=== PATIENT | male | born 1935 | race Caucasian/White ===

== ENCOUNTER 2019-05-07 16:36 | Inpatient (IN) ==
[2019-05-07 20:01] LABS: Basophils % 0.3 % (0.0-0.8); Eosinophils % 0.1 % (0.00-10.9); Hemoglobin 12.7 GM/DL (14.0-18.0); Immature Granulocytes % 0.5 %; Immature Granulocytes Absolute 0.05 #; Lymphocytes # 0.8 10*3/uL (1.4-4.0); Lymphocytes % 8.5 % (21.2-54.2); Mean Corpuscular HGB Conc 31.8 GM/DL (32-36); Mean Corpuscular Volume 95.7 FL (87-102); Mean Platelet Volume 9.8 FL (9.6-12.0); Monocytes % 11.1 % (1.7-12.7); Neutrophils % 79.5 % (38.7-73.9); Platelet Count 296 T/CUMM (130-400); Red Blood Count 4.18 MC/CUMM (3.8-5.5); Red Cell Distribution Width 13.7 % (9.3-17.3); White Blood Count 9.7 T/CUMM (4-12)
[2019-05-07 21:27] LABS: Albumin 3.5 G/DL (3.4-5.0); Bilirubin,Total 0.8 MG/DL (0.2-1.0); Calcium 8.7 MG/DL (8.5-10.1); Osmolality,Calculated 285.3 MOS/KG (273-304); Risk Ratio 2.02; Total Protein 7.9 G/DL (6.4-8.3); VLDL CHOLESTEROL 29.4 MG/DL
[2019-05-07] MEDS: ENOXAPARIN 40 MG/0.4 ML SYRINGE SUBCUT SCH (22:56)
[2019-05-07] MEDS ORDERED: ACETAMINOPHEN 650 MG SUPP RECTAL PRN (23:46)
[2019-05-07] MEDS ORDERED: ACETAMINOPHEN 500 MG TABLET PO PRN (23:46)
[2019-05-08 00:05] LABS: ABG Base Excess 4.2 MMOL/L (-2.5-2.5); ABG HCO3 32.9 MMOL/L (20-26); ABG PO2 68.5 MM HG (80-95); ABG TCO2 35.1 MMOL/L (23-27); Allen Test Positive; Pt O2 Delivery Device Other
[2019-05-08 00:08] LABS: ABG PH 7.281 (7.35-7.45)
[2019-05-08 03:50] LABS: ABG Base Excess 1.8 MMOL/L (-2.5-2.5); ABG HCO3 25.9 MMOL/L (20-26); ABG Oxygen Saturation 93.4 % (95-100); ABG PO2 75.3 MM HG (80-95); ABG TCO2 31.3 MMOL/L (23-27); Allen Test Positive; Pt O2 Delivery Device BIPAP
[2019-05-08 03:57] LABS: ABG PH 7.174 (7.35-7.45)
[2019-05-08 03:59] LABS: ABG PCO2 92.5 MM HG (35-48)
[2019-05-08] MEDS ORDERED: methylPREDNISolone SOD SUC 125 MG/2 ML VIAL IV ONE (04:07)
[2019-05-08] MEDS: MEROPENEM 500 MG in SODIUM CHLORIDE 0.9% 100 ML IV SCH ×3 (04:47→20:38)
[2019-05-08 05:15] LABS: ABG Base Excess 2.5 MMOL/L (-2.5-2.5); ABG HCO3 26.6 MMOL/L (20-26); ABG Oxygen Saturation 95.5 % (95-100); ABG PH 7.267 (7.35-7.45); ABG PO2 77.4 MM HG (80-95); ABG TCO2 28.6 MMOL/L (23-27); Allen Test Positive; Pt O2 Delivery Device BIPAP
[2019-05-08 05:18] LABS: ABG PCO2 69.9 MM HG (35-48)
[2019-05-08 05:50] LABS: Basophils % 0.2 % (0.0-0.8); Hematocrit 38.5 VOL% (42.0-52.0); Immature Granulocytes % 0.5 %; Immature Granulocytes Absolute 0.05 #; Lymphocytes # 0.9 10*3/uL (1.4-4.0); Lymphocytes % 9.8 % (21.2-54.2); Mean Corpuscular HGB Conc 31.2 GM/DL (32-36); Mean Corpuscular Volume 96.3 FL (87-102); Mean Platelet Volume 9.6 FL (9.6-12.0); Monocytes % 12.2 % (1.7-12.7); Neutrophils % 77.3 % (38.7-73.9); Platelet Count 275 T/CUMM (130-400); Red Cell Distribution Width 13.8 % (9.3-17.3); White Blood Count 9.5 T/CUMM (4-12)
[2019-05-08] MEDS: VANCOMYCIN INJ 1,500 MG in SODIUM CHLORIDE 0.9% 500 ML IV SCH (06:17)
[2019-05-08 06:19] LABS: Albumin 3.2 G/DL (3.4-5.0); Bilirubin,Total 0.6 MG/DL (0.2-1.0); Calcium 8.5 MG/DL (8.5-10.1); Osmolality,Calculated 291.8 MOS/KG (273-304); Total Protein 7.5 G/DL (6.4-8.3)
[2019-05-08] MEDS ORDERED: cefTRIAXone 1,000 MG in SYRINGE 1 EACH IV SCH (09:00)
[2019-05-08 17:01] LABS: ABG Base Excess 2.3 MMOL/L (-2.5-2.5); ABG HCO3 26.3 MMOL/L (20-26); ABG Oxygen Saturation 91.4 % (95-100); ABG PCO2 60.1 MM HG (35-48); ABG PH 7.309 (7.35-7.45); ABG TCO2 27.2 MMOL/L (23-27); Pt O2 Delivery Device BIPAP
[2019-05-08] MEDS: ENOXAPARIN 40 MG/0.4 ML SYRINGE SUBCUT SCH (20:45)
[2019-05-08] MEDS: carvediloL 6.25 MG TABLET PO SCH (20:46)
[2019-05-08] MEDS: NYSTATIN 500,000 UNIT/5 ML UDCUP SWISH/SWAL SCH (20:46)
[2019-05-08] MEDS ORDERED: ALBUTEROL/IPRATROPIUM 3 ML NEB RESP TX PRN (21:00)
[2019-05-09] MEDS: ALBUTEROL/IPRATROPIUM 3 ML NEB RESP TX SCH ×4 (02:30→20:47)
[2019-05-09] MEDS: MEROPENEM 500 MG in SODIUM CHLORIDE 0.9% 100 ML IV SCH ×3 (04:27→20:10)
[2019-05-09 05:56] LABS: Basophils % 0.2 % (0.0-0.8); Eosinophils % 0.1 % (0.00-10.9); Hematocrit 35.1 VOL% (42.0-52.0); Immature Granulocytes % 0.6 %; Immature Granulocytes Absolute 0.05 #; Lymphocytes # 1.6 10*3/uL (1.4-4.0); Mean Corpuscular HGB Conc 31.3 GM/DL (32-36); Mean Corpuscular Volume 95.6 FL (87-102); Monocytes % 13.7 % (1.7-12.7); Neutrophils % 65.4 % (38.7-73.9); Platelet Count 251 T/CUMM (130-400); Red Blood Count 3.67 MC/CUMM (3.8-5.5); Red Cell Distribution Width 13.6 % (9.3-17.3)
[2019-05-09 06:21] LABS: Calcium 8.8 MG/DL (8.5-10.1); Osmolality,Calculated 299.4 MOS/KG (273-304)
[2019-05-09 06:38] LABS: ABG PCO2 71.5 MM HG (35-48)
[2019-05-09] MEDS: NYSTATIN 500,000 UNIT/5 ML UDCUP SWISH/SWAL SCH ×4 (08:06→20:10)
[2019-05-09] MEDS: carvediloL 6.25 MG TABLET PO SCH ×2 (08:06→20:09)
[2019-05-09] MEDS: amLODIPine 10 MG TABLET PO SCH (12:18)
[2019-05-09] MEDS: POTASSIUM CHLORIDE 20 MEQ TABLET PO SCH (12:18)
[2019-05-09] MEDS: VANCOMYCIN INJ 1,500 MG in SODIUM CHLORIDE 0.9% 500 ML IV SCH (17:14)
[2019-05-09] MEDS: ENOXAPARIN 40 MG/0.4 ML SYRINGE SUBCUT SCH (20:08)
[2019-05-09] MEDS: FUROSEMIDE 20 MG TABLET PO SCH (20:09)
[2019-05-09] MEDS ORDERED: POTASSIUM CHLORIDE 20 MEQ TABLET PO SCH (21:00)
[2019-05-09] MEDS ORDERED: carvediloL 25 MG TABLET PO SCH (21:00)
[2019-05-10] MEDS: ALBUTEROL/IPRATROPIUM 3 ML NEB RESP TX SCH ×5 (01:46→23:55)
[2019-05-10] MEDS: MEROPENEM 500 MG in SODIUM CHLORIDE 0.9% 100 ML IV SCH ×3 (05:10→21:30)
[2019-05-10 05:31] LABS: Basophils % 0.4 % (0.0-0.8); Eosinophils % 0.6 % (0.00-10.9); Hematocrit 35.4 VOL% (42.0-52.0); Hemoglobin 11.1 GM/DL (14.0-18.0); Immature Granulocytes % 1.3 %; Immature Granulocytes Absolute 0.09 #; Lymphocytes # 1.6 10*3/uL (1.4-4.0); Lymphocytes % 22.4 % (21.2-54.2); Mean Corpuscular HGB Conc 31.4 GM/DL (32-36); Mean Corpuscular Volume 94.7 FL (87-102); Mean Platelet Volume 9.7 FL (9.6-12.0); Monocytes % 11.5 % (1.7-12.7); Neutrophils % 63.8 % (38.7-73.9); Platelet Count 256 T/CUMM (130-400); Red Blood Count 3.74 MC/CUMM (3.8-5.5); Red Cell Distribution Width 13.5 % (9.3-17.3)
[2019-05-10 06:04] LABS: Calcium 8.8 MG/DL (8.5-10.1); Osmolality,Calculated 298.4 MOS/KG (273-304)
[2019-05-10] MEDS: lisinopriL 10 MG TABLET PO SCH (08:25)
[2019-05-10] MEDS: amLODIPine 10 MG TABLET PO SCH (08:25)
[2019-05-10] MEDS: FUROSEMIDE 20 MG TABLET PO SCH ×2 (08:25→21:29)
[2019-05-10] MEDS: POTASSIUM CHLORIDE 20 MEQ TABLET PO SCH ×2 (08:25→21:29)
[2019-05-10] MEDS: NYSTATIN 500,000 UNIT/5 ML UDCUP SWISH/SWAL SCH ×4 (08:25→21:28)
[2019-05-10] MEDS: carvediloL 6.25 MG TABLET PO SCH ×2 (08:25→21:29)
[2019-05-10] MEDS ORDERED: POTASSIUM CHLORIDE 20 MEQ TABLET PO ONE (10:41)
[2019-05-10] MEDS: VANCOMYCIN INJ 1,500 MG in SODIUM CHLORIDE 0.9% 500 ML IV SCH (17:36)
[2019-05-10] MEDS: ROSUVASTATIN 20 MG TABLET PO SCH (21:29)
[2019-05-10] MEDS: ENOXAPARIN 40 MG/0.4 ML SYRINGE SUBCUT SCH (21:30)
[2019-05-11] MEDS: MEROPENEM 500 MG in SODIUM CHLORIDE 0.9% 100 ML IV SCH ×3 (05:03→20:48)
[2019-05-11 05:35] LABS: Albumin 2.8 G/DL (3.4-5.0); Calcium 8.7 MG/DL (8.5-10.1); Osmolality,Calculated 298.1 MOS/KG (273-304)
[2019-05-11] MEDS: ALBUTEROL/IPRATROPIUM 3 ML NEB RESP TX SCH ×3 (08:05→19:44)
[2019-05-11] MEDS: carvediloL 6.25 MG TABLET PO SCH ×2 (08:56→20:49)
[2019-05-11] MEDS: POTASSIUM CHLORIDE 20 MEQ TABLET PO SCH ×2 (08:56→20:50)
[2019-05-11] MEDS: FUROSEMIDE 20 MG TABLET PO SCH ×2 (08:56→20:50)
[2019-05-11] MEDS: amLODIPine 10 MG TABLET PO SCH (08:56)
[2019-05-11] MEDS: NYSTATIN 500,000 UNIT/5 ML UDCUP SWISH/SWAL SCH ×4 (08:57→20:50)
[2019-05-11] MEDS: lisinopriL 10 MG TABLET PO SCH (09:05)
[2019-05-11] MEDS: VANCOMYCIN INJ 1,500 MG in SODIUM CHLORIDE 0.9% 500 ML IV SCH (17:44)
[2019-05-11] MEDS: ENOXAPARIN 40 MG/0.4 ML SYRINGE SUBCUT SCH (20:49)
[2019-05-11] MEDS: ROSUVASTATIN 20 MG TABLET PO SCH (20:49)
[2019-05-12] MEDS: ALBUTEROL/IPRATROPIUM 3 ML NEB RESP TX SCH ×4 (01:08→19:50)
[2019-05-12] MEDS: MEROPENEM 500 MG in SODIUM CHLORIDE 0.9% 100 ML IV SCH ×4 (03:05→21:25)
[2019-05-12 04:54] LABS: Basophils % 0.3 % (0.0-0.8); Eosinophils # 0.1 10*3/uL (0.0-0.87); Eosinophils % 1.8 % (0.00-10.9); Hematocrit 34.9 VOL% (42.0-52.0); Immature Granulocytes % 0.7 %; Immature Granulocytes Absolute 0.05 #; Lymphocytes # 1.4 10*3/uL (1.4-4.0); Lymphocytes % 20.4 % (21.2-54.2); Mean Corpuscular HGB Conc 31.5 GM/DL (32-36); Mean Corpuscular Volume 94.3 FL (87-102); Mean Platelet Volume 9.7 FL (9.6-12.0); Monocytes % 10.6 % (1.7-12.7); Neutrophils % 66.2 % (38.7-73.9); Platelet Count 259 T/CUMM (130-400); Red Cell Distribution Width 13.3 % (9.3-17.3); White Blood Count 6.7 T/CUMM (4-12)
[2019-05-12 05:08] LABS: Calcium 8.7 MG/DL (8.5-10.1); Osmolality,Calculated 292.4 MOS/KG (273-304)
[2019-05-12] MEDS: POTASSIUM CHLORIDE 20 MEQ TABLET PO SCH ×2 (09:07→20:39)
[2019-05-12] MEDS: amLODIPine 10 MG TABLET PO SCH (09:07)
[2019-05-12] MEDS: NYSTATIN 500,000 UNIT/5 ML UDCUP SWISH/SWAL SCH ×4 (09:09→20:38)
[2019-05-12] MEDS: lisinopriL 10 MG TABLET PO SCH (09:10)
[2019-05-12] MEDS: FUROSEMIDE 20 MG TABLET PO SCH ×2 (09:10→20:39)
[2019-05-12] MEDS: carvediloL 6.25 MG TABLET PO SCH ×2 (09:10→20:39)
[2019-05-12] MEDS ORDERED: MAGNESIUM SULF RIDER 2 GM in PREMIX 1 EACH IV ONE (15:45)
[2019-05-12] MEDS: POTASSIUM CHLORIDE 20 MEQ/15 ML UDCUP PER TUBE SCH ×3 (16:25→23:41)
[2019-05-12] MEDS: VANCOMYCIN INJ 1,500 MG in SODIUM CHLORIDE 0.9% 500 ML IV SCH (18:32)
[2019-05-12] MEDS: ENOXAPARIN 40 MG/0.4 ML SYRINGE SUBCUT SCH (20:37)
[2019-05-12] MEDS: ROSUVASTATIN 20 MG TABLET PO SCH (20:39)
[2019-05-13] MEDS: ALBUTEROL/IPRATROPIUM 3 ML NEB RESP TX SCH ×4 (00:35→20:24)
[2019-05-13] MEDS: MEROPENEM 500 MG in SODIUM CHLORIDE 0.9% 100 ML IV SCH ×4 (03:37→20:41)
[2019-05-13] MEDS: POTASSIUM CHLORIDE 20 MEQ TABLET PO SCH ×2 (08:25→20:42)
[2019-05-13] MEDS: FUROSEMIDE 20 MG TABLET PO SCH ×2 (08:25→20:42)
[2019-05-13] MEDS: lisinopriL 10 MG TABLET PO SCH (08:25)
[2019-05-13] MEDS: carvediloL 6.25 MG TABLET PO SCH ×2 (08:25→20:42)
[2019-05-13] MEDS: amLODIPine 10 MG TABLET PO SCH (08:25)
[2019-05-13] MEDS: NYSTATIN 500,000 UNIT/5 ML UDCUP SWISH/SWAL SCH ×4 (08:26→20:42)
[2019-05-13] MEDS: VANCOMYCIN INJ 1,500 MG in SODIUM CHLORIDE 0.9% 500 ML IV SCH (18:03)
[2019-05-13] MEDS: ENOXAPARIN 40 MG/0.4 ML SYRINGE SUBCUT SCH (20:41)
[2019-05-13] MEDS: ROSUVASTATIN 20 MG TABLET PO SCH (20:42)
[2019-05-14] MEDS: ALBUTEROL/IPRATROPIUM 3 ML NEB RESP TX SCH ×4 (00:05→19:41)
[2019-05-14] MEDS: MEROPENEM 500 MG in SODIUM CHLORIDE 0.9% 100 ML IV SCH ×4 (05:00→22:20)
[2019-05-14 06:20] LABS: Basophils % 0.5 % (0.0-0.8); Eosinophils # 0.1 10*3/uL (0.0-0.87); Eosinophils % 1.2 % (0.00-10.9); Hematocrit 35.7 VOL% (42.0-52.0); Hemoglobin 11.3 GM/DL (14.0-18.0); Immature Granulocytes % 0.6 %; Immature Granulocytes Absolute 0.05 #; Lymphocytes # 1.7 10*3/uL (1.4-4.0); Lymphocytes % 19.8 % (21.2-54.2); Mean Corpuscular HGB Conc 31.7 GM/DL (32-36); Mean Corpuscular Volume 93.9 FL (87-102); Mean Platelet Volume 9.8 FL (9.6-12.0); Monocytes % 8.5 % (1.7-12.7); Neutrophils % 69.4 % (38.7-73.9); Platelet Count 262 T/CUMM (130-400); Red Cell Distribution Width 13.2 % (9.3-17.3); White Blood Count 8.4 T/CUMM (4-12)
[2019-05-14 06:38] LABS: Calcium 8.4 MG/DL (8.5-10.1); Osmolality,Calculated 288.7 MOS/KG (273-304)
[2019-05-14] MEDS: amLODIPine 10 MG TABLET PO SCH (08:53)
[2019-05-14] MEDS: carvediloL 6.25 MG TABLET PO SCH ×2 (08:54→21:05)
[2019-05-14] MEDS: NYSTATIN 500,000 UNIT/5 ML UDCUP SWISH/SWAL SCH ×4 (08:54→21:05)
[2019-05-14] MEDS: FUROSEMIDE 20 MG TABLET PO SCH ×2 (08:54→21:05)
[2019-05-14] MEDS: POTASSIUM CHLORIDE 20 MEQ TABLET PO SCH ×2 (08:54→21:04)
[2019-05-14] MEDS: lisinopriL 10 MG TABLET PO SCH (08:54)
[2019-05-14] MEDS: VANCOMYCIN INJ 1,500 MG in SODIUM CHLORIDE 0.9% 500 ML IV SCH (18:13)
[2019-05-14] MEDS: ENOXAPARIN 40 MG/0.4 ML SYRINGE SUBCUT SCH (21:05)
[2019-05-14] MEDS: ROSUVASTATIN 20 MG TABLET PO SCH (21:05)
[2019-05-15] MEDS: ALBUTEROL/IPRATROPIUM 3 ML NEB RESP TX SCH ×4 (00:12→20:18)
[2019-05-15] MEDS: MEROPENEM 500 MG in SODIUM CHLORIDE 0.9% 100 ML IV SCH ×2 (03:04→09:34)
[2019-05-15] MEDS: FUROSEMIDE 20 MG TABLET PO SCH ×2 (09:33→21:26)
[2019-05-15] MEDS: amLODIPine 10 MG TABLET PO SCH (09:34)
[2019-05-15] MEDS: lisinopriL 10 MG TABLET PO SCH (09:34)
[2019-05-15] MEDS: carvediloL 6.25 MG TABLET PO SCH ×2 (09:34→21:26)
[2019-05-15] MEDS: NYSTATIN 500,000 UNIT/5 ML UDCUP SWISH/SWAL SCH ×4 (09:34→21:26)
[2019-05-15] MEDS: POTASSIUM CHLORIDE 20 MEQ TABLET PO SCH ×2 (09:35→21:26)
[2019-05-15] MEDS: ENOXAPARIN 40 MG/0.4 ML SYRINGE SUBCUT SCH (21:25)
[2019-05-15] MEDS: DOXYCYCLINE HYCLATE 100 MG CAPSULE PO SCH (21:26)
[2019-05-15] MEDS: ROSUVASTATIN 20 MG TABLET PO SCH (21:26)
[2019-05-16] MEDS: ALBUTEROL/IPRATROPIUM 3 ML NEB RESP TX SCH ×2 (00:20→06:47)
[2019-05-16 05:19] LABS: Basophils % 0.3 % (0.0-0.8); Eosinophils # 0.1 10*3/uL (0.0-0.87); Hematocrit 32.6 VOL% (42.0-52.0); Hemoglobin 10.2 GM/DL (14.0-18.0); Immature Granulocytes % 0.7 %; Immature Granulocytes Absolute 0.07 #; Lymphocytes # 1.8 10*3/uL (1.4-4.0); Lymphocytes % 18.7 % (21.2-54.2); Mean Corpuscular HGB Conc 31.3 GM/DL (32-36); Mean Corpuscular Volume 94.5 FL (87-102); Monocytes % 10.1 % (1.7-12.7); Neutrophils % 69.2 % (38.7-73.9); Platelet Count 246 T/CUMM (130-400); Red Blood Count 3.45 MC/CUMM (3.8-5.5); Red Cell Distribution Width 13.2 % (9.3-17.3); White Blood Count 9.4 T/CUMM (4-12)
[2019-05-16 05:43] LABS: Calcium 8.4 MG/DL (8.5-10.1); Osmolality,Calculated 287.8 MOS/KG (273-304)
[2019-05-16] MEDS: NYSTATIN 500,000 UNIT/5 ML UDCUP SWISH/SWAL SCH ×2 (09:03→12:11)
[2019-05-16] MEDS: POTASSIUM CHLORIDE 20 MEQ TABLET PO SCH (09:03)
[2019-05-16] MEDS: DOXYCYCLINE HYCLATE 100 MG CAPSULE PO SCH (09:03)
[2019-05-16] MEDS: lisinopriL 10 MG TABLET PO SCH (09:03)
[2019-05-16] MEDS: carvediloL 6.25 MG TABLET PO SCH (09:04)
[2019-05-16] MEDS: amLODIPine 10 MG TABLET PO SCH (09:04)
[2019-05-16] MEDS: FUROSEMIDE 20 MG TABLET PO SCH (09:04)
[2019-05-16 12:34] VITALS: BP 126/64
== END 2019-05-16 13:35 | disposition home health service (06) | DRG 193 ==
LOC: N.5E 17:55 → SUATTDRO 17:55 → N.CC 18:51 → N.3E 05-10 16:40
PROVIDERS: ADMIT Internal Medicine; ATTEND Internal Medicine

== ENCOUNTER 2022-05-03 17:47 | Inpatient (IN) ==
[2022-05-03] MEDS ORDERED: ALBUTEROL/IPRATROPIUM 3 ML NEB RESP TX STA (18:34)
[2022-05-03] MEDS ORDERED: MORPHINE 2 MG/1 ML SYRINGE IV STA (18:34)
[2022-05-03] MEDS ORDERED: ONDANSETRON 4 MG/2 ML VIAL IV STA (18:34)
[2022-05-03] MEDS ORDERED: FUROSEMIDE 100 MG/10 ML VIAL IV STA (18:34)
[2022-05-03] MEDS ORDERED: methylPREDNISolone SOD SUC 125 MG/2 ML VIAL IV STA (18:34)
[2022-05-03] MEDS ORDERED: ASPIRIN 325 MG TABLET PO STA (18:34)
[2022-05-03 18:41] LABS: Basophils % 0.3 % (0.0-0.8); Eosinophils # 0.1 10*3/uL (0.0-0.87); Eosinophils % 1.3 % (0.00-10.9); Hematocrit 41.8 VOL% (42.0-52.0); Hemoglobin 12.8 GM/DL (14.0-18.0); Lymphocytes # 2.2 10*3/uL (1.4-4.0); Lymphocytes % 21.3 % (21.2-54.2); Mean Corpuscular HGB Conc 30.6 GM/DL (32-36); Mean Corpuscular Volume 98.1 FL (87-102); Mean Platelet Volume 10.3 FL (9.6-12.0); Monocytes # 0.9 10*3/uL (0.11-0.8); Monocytes % 8.5 % (1.7-12.7); Neutrophils % 67.6 % (38.7-73.9); Platelet Count 372 T/CUMM (130-400); Red Blood Count 4.26 MC/CUMM (3.8-5.5); Red Cell Distribution Width 14.4 % (9.3-17.3); White Blood Count 10.3 T/CUMM (4-12)
[2022-05-03] MEDS ORDERED: ALBUTEROL NEB SOLN 5 MG/ML 20 ML/BOTTLE CONT NEB SCH (19:00)
[2022-05-03 19:15] LABS: Albumin 3.3 G/DL (3.4-5.0); Bilirubin,Total 0.4 MG/DL (0.20-1.00); Calcium 9.2 MG/DL (8.5-10.1); Osmolality,Calculated 287.8 MOS/KG (273-304); Total Protein 6.9 G/DL (6.4-8.2)
[2022-05-03] MEDS ORDERED: PIPERACILLIN/TAZOBACTAM 3,375 MG in SODIUM CHLORIDE 0.9% 100 ML IV STA (19:33)
[2022-05-03 19:38] LABS: PT Patient Result 10.9 SECS (10.1-12.1)
[2022-05-03] MEDS ORDERED: diphenhydrAMINE CAP 25 MG CAPSULE PO PRN (23:09)
[2022-05-03] MEDS ORDERED: ACETAMINOPHEN 325 MG TABLET PO PRN (23:09)
[2022-05-03] MEDS ORDERED: ONDANSETRON 4 MG/2 ML VIAL IV PRN (23:09)
[2022-05-03] MEDS ORDERED: ZALEPLON 5 MG CAPSULE PO PRN (23:09)
[2022-05-03] MEDS ORDERED: NICOTINE 21 MG/24 HR PATCH TRANSDERM PRN (23:09)
[2022-05-03] MEDS ORDERED: hydrALAZINE 20 MG/1 ML VIAL IV PRN (23:09)
[2022-05-03] MEDS ORDERED: MORPHINE 2 MG/1 ML SYRINGE IV PRN (23:09)
[2022-05-03] MEDS: AZITHROMYCIN INJ 500 MG in SODIUM CHLORIDE 0.9% 250 ML IV SCH (23:40)
[2022-05-04] MEDS: PIPERACILLIN/TAZOBACTAM 3,375 MG in SODIUM CHLORIDE 0.9% 100 ML IV SCH ×3 (04:10→21:13)
[2022-05-04] MEDS: guaiFENesin/DM ER 600-30 MG TABLET PO PRN (04:28)
[2022-05-04 04:41] LABS: Basophils % 0.1 % (0.0-0.8); Hematocrit 40.4 VOL% (42.0-52.0); Hemoglobin 12.4 GM/DL (14.0-18.0); Immature Granulocytes % 0.9 %; Immature Granulocytes Absolute 0.09 #; Lymphocytes # 0.8 10*3/uL (1.4-4.0); Mean Corpuscular HGB Conc 30.7 GM/DL (32-36); Mean Corpuscular Volume 98.3 FL (87-102); Mean Platelet Volume 10.2 FL (9.6-12.0); Monocytes # 0.1 10*3/uL (0.11-0.8); Monocytes % 0.7 % (1.7-12.7); Neutrophils % 90.3 % (38.7-73.9); Platelet Count 356 T/CUMM (130-400); Red Blood Count 4.11 MC/CUMM (3.8-5.5); Red Cell Distribution Width 14.2 % (9.3-17.3); White Blood Count 10.5 T/CUMM (4-12)
[2022-05-04 04:53] LABS: Bilirubin,Total 0.4 MG/DL (0.20-1.00); Calcium 9.2 MG/DL (8.5-10.1); Osmolality,Calculated 293.8 MOS/KG (273-304); Potassium 3.7 MMOL/L (3.5-5.1); Total Protein 7.1 G/DL (6.4-8.2)
[2022-05-04] MEDS: methylPREDNISolone SOD SUC 40 MG/1 ML VIAL IV SCH ×3 (08:30→17:19)
[2022-05-04] MEDS: ALBUTEROL/IPRATROPIUM 3 ML NEB RESP TX SCH ×4 (09:21→19:40)
[2022-05-04 10:19] LABS: Arterial Base Excess iSTAT 7 MMOL/L (-2.5-2.5); Arterial Bicarbonate iSTAT 35.3 MMOL/L (20-26); Arterial O2 Saturation iSTAT 94 % (95-100); Arterial PCO2 iSTAT 66 MM HG (35-48); Arterial PO2 iSTAT 78 MM HG (80-95); Arterial Total CO2 iSTAT 37 MMO/L (23-27); Arterial pH iSTAT 7.339 (7.35-7.45)
[2022-05-04] MEDS: PANTOPRAZOLE 40 MG TABLET PO SCH (10:59)
[2022-05-05] MEDS: ALBUTEROL/IPRATROPIUM 3 ML NEB RESP TX SCH ×4 (00:35→19:35)
[2022-05-05] MEDS: AZITHROMYCIN INJ 500 MG in SODIUM CHLORIDE 0.9% 250 ML IV SCH (00:54)
[2022-05-05] MEDS: methylPREDNISolone SOD SUC 40 MG/1 ML VIAL IV SCH ×3 (00:54→12:57)
[2022-05-05] MEDS: guaiFENesin/DM ER 600-30 MG TABLET PO PRN (02:54)
[2022-05-05] MEDS: PIPERACILLIN/TAZOBACTAM 3,375 MG in SODIUM CHLORIDE 0.9% 100 ML IV SCH ×3 (05:03→21:25)
[2022-05-05] MEDS: PANTOPRAZOLE 40 MG TABLET PO SCH (09:19)
[2022-05-05] MEDS: ENOXAPARIN 40 MG/0.4 ML SYRINGE SUBCUT SCH (15:22)
[2022-05-05] MEDS: methylPREDNISolone SOD SUC 125 MG/2 ML VIAL IV SCH (21:21)
[2022-05-06] MEDS: guaiFENesin/DM ER 600-30 MG TABLET PO PRN (00:26)
[2022-05-06] MEDS: ALBUTEROL/IPRATROPIUM 3 ML NEB RESP TX SCH ×2 (01:09→07:35)
[2022-05-06] MEDS: AZITHROMYCIN INJ 500 MG in SODIUM CHLORIDE 0.9% 250 ML IV SCH (01:32)
[2022-05-06] MEDS: PIPERACILLIN/TAZOBACTAM 3,375 MG in SODIUM CHLORIDE 0.9% 100 ML IV SCH (06:36)
[2022-05-06 06:39] LABS: Basophils % 0.1 % (0.0-0.8); Hematocrit 31.9 VOL% (42.0-52.0); Immature Granulocytes % 1.2 %; Immature Granulocytes Absolute 0.21 #; Lymphocytes # 1.1 10*3/uL (1.4-4.0); Lymphocytes % 5.9 % (21.2-54.2); Mean Corpuscular HGB Conc 32.3 GM/DL (32-36); Mean Corpuscular Volume 94.7 FL (87-102); Mean Platelet Volume 10.4 FL (9.6-12.0); Monocytes # 0.4 10*3/uL (0.11-0.8); Monocytes % 2.4 % (1.7-12.7); Neutrophils % 90.4 % (38.7-73.9); Platelet Count 307 T/CUMM (130-400); Red Blood Count 3.37 MC/CUMM (3.8-5.5); Red Cell Distribution Width 14.2 % (9.3-17.3); White Blood Count 17.9 T/CUMM (4-12)
[2022-05-06 06:40] LABS: Hemoglobin 10.3 GM/DL (14.0-18.0)
[2022-05-06 06:47] LABS: Osmolality,Calculated 298.3 MOS/KG (273-304); Potassium 3.2 MMOL/L (3.5-5.1)
[2022-05-06 07:53] VITALS: BP 137/69
[2022-05-06] MEDS ORDERED: POTASSIUM CHLORIDE 20 MEQ TABLET PO ONE (08:00)
[2022-05-06] MEDS ORDERED: cefTRIAXone 1,000 MG in SODIUM CHLORIDE 0.9% 100 ML IV SCH (09:00)
[2022-05-06] MEDS: PANTOPRAZOLE 40 MG TABLET PO SCH (09:00)
[2022-05-06] MEDS: ENOXAPARIN 40 MG/0.4 ML SYRINGE SUBCUT SCH (09:00)
[2022-05-06] MEDS: methylPREDNISolone SOD SUC 125 MG/2 ML VIAL IV SCH (09:00)
== END 2022-05-06 11:37 | disposition home health service (06) | DRG 193 ==
LOC: N.ED 17:47 → SUATTDRO 23:09 → N.EDINP 23:09 → N.3E 05-04 15:34
PROVIDERS: ADMIT Internal Medicine; ATTEND Internal Medicine Geriatric Medicine